=== PATIENT | female | born 1990 | race Caucasian/White ===

== ENCOUNTER → 2016-05-07 | Outpatient (CLI) | payer OTHER ==
[~2016-05-07] MED LIST: ALBU17IN2 PO; COUM1TAB19 PO; MULT1CHW26 PO; PERC5TAB6 PO; PERCOCET PO; SING10TA32 PO; TUMS500C PO; TYLE500T78 PO
[2016-05-12 14:12] LABS: PROTEIN C ANTIGEN 61 % (60-150); PROTEIN S ANTIGEN FREE 71 % (57-157); PROTEIN S ANTIGEN TOTAL 113 % (60-150)
== END ==
LOC: M LRY 14:11
PROVIDERS: ATTEND Internal Medicine Medical Oncology
DX: G08 Intracranial and intraspinal phlebitis and thrombophlebitis (principal)

== ENCOUNTER 2016-05-28 16:51 | Emergency (ER) | payer OTHER ==
[~2016-05-28] VITALS: Ht 167.6 cm; Wt 107.5 kg
[2016-05-28] MEDS ORDERED: KETOROLAC 30 MG/ML VIAL (J1885) IV ONE (18:45)
[2016-05-28] MEDS ORDERED: NS 1,000 ML IV ONE (18:45)
[2016-05-28 19:35] LABS: BASO % 0.4 % (0.0-1.0); EOS # 0.5 K/mm3 (0.0-0.50); EOS % 4.1 % (0.0-3.0); LARGE UNSTAINED CELL # 0.3 K/mm3 (0.0-0.4); LYMPH # 3.6 K/mm3 (1.5-6.5); LYMPH % 31.9 % (24.0-44.0); MEAN CORPUSCULAR HEMOGLOBIN 25.2 pg (27.0-33.0); MEAN CORPUSCULAR HGB CONC 31.6 g/dl (32.0-36.5); MEAN CORPUSCULAR VOLUME 79.8 fl (80.0-96.0); MONO # 0.4 K/mm3 (0.0-0.8); MONO % 3.8 % (0.0-5.0); NEUTROPHILS # 6.4 K/mm3 (1.8-7.7); NEUTROPHILS % 56.7 % (36.0-66.0); PLATELET COUNT, AUTOMATED 450 k/mm3 (150-450); RED CELL DISTRIBUTION WIDTH 15.4 % (11.5-14.5); WHITE BLOOD COUNT 11.2 K/mm3 (4.0-10.0)
[2016-05-28 19:38] LABS: INR 0.9
--- NOTE | 2016-05-28 20:40 | REPUSA ---
CLINICAL HISTORY: Vaginal bleeding. TECHNIQUE: Realtime sonographic images were obtained in multiple projections. COMMENTS: Patient is 2, para 2. LMP: 05/26/2016. The uterus is anteverted measuring 8.9 x 4.4 x 5.8 cm. Small nabothian cyst is seen. There is no evidence of free fluid within the pelvic cul-de-sac. Limited view of the ovaries due to bowel. The right ovary measures 2.3 x 1.8 x 3.6 cm; RI: Venous flow. The left ovary measures 2.4 x 1.4 x 2 .4 cm; RI: 0.56. Both ovaries are free of solid or cystic mass. There is no evidence for abnormal vascularity. IMPRESSION: Slightly heterogeneous uterus. No torsion. Thank you for your kind referral of this patient. We appreciate the opportunity to participate in th is patient's care.
[2016-05-28 21:50] VITALS: BP 130/78
== END 2016-05-28 21:58 | disposition home or self-care (01) ==
LOC: M ED 17:57
DX: N92.0 Excessive and frequent menstruation with regular cycle (principal); F17.210 Nicotine dependence, cigarettes, uncomplicated; Z79.899 Other long term (current) drug therapy
CPT/HCPCS: 36415; 76830; 76856; 81001; 81025; 85025; 85610; 85730; 87210; 87491; 87591; 93976; 96374; 99284; J1885

== ENCOUNTER → 2016-07-16 | Outpatient (CLI) | payer OTHER | LOC: M SMT 13:54 | PROVIDERS: ATTEND Obstetrics & Gynecology | DX: N91.2 Amenorrhea, unspecified (principal) ==

== ENCOUNTER 2016-08-05 12:27 | Observation (INO) | payer OTHER ==
[~2016-08-05] VITALS: Ht 167.6 cm; Wt 112.3 kg
[~2016-08-05 12:27] MED LIST changes: +ALBU17IN2 INH; -ALBU17IN2 PO
[2016-08-05] MEDS ORDERED: FOLI400T PO (12:37)
[2016-08-05] MEDS ORDERED: ENOX40IN3 SQ (12:37)
[2016-08-05] MEDS ORDERED: PREN1TAB11 PO (12:37)
[2016-08-05] MEDS ORDERED: METOCLOPRAMIDE INJ 10MG/2ML VIAL (J2765) IV ONE (13:15)
[2016-08-05 13:37] LABS: CONTROL LINE HCG INT CTR LINE PRESENT
--- NOTE | 2016-08-05 13:37 | REP ---
Clinical: Cerebrovascular accident . Comparison: 01/29/2016 . Findings: The ventricles, sulci, and cisterns are normal in position and appearance. Cazares-white differentiation is maintained. No acute intracranial hemorrhage, mass/mass effect, pathology or trauma/injury. No evidence for acute infarction. No extra-axial fluid collection. Calvarium is intact. Paranasal sinuses and mastoid air cells are clear. Impression: Normal noncontrast head CT. No evidence for acute intracranial pathology or trauma/injury. Signed by Kwan Sutherland MD 08/05/2016 01:28 P
[2016-08-05 13:40] LABS: INR 1.02
[2016-08-05 13:42] LABS: BASO % 0.5 % (0.0-1.0); EOS # 0.2 K/mm3 (0.0-0.50); EOS % 2.5 % (0.0-3.0); LARGE UNSTAINED CELL # 0.2 K/mm3 (0.0-0.4); LARGE UNSTAINED CELL % 1.7 % (0.0-4.0); LYMPH % 31.2 % (24.0-44.0); MEAN CORPUSCULAR HEMOGLOBIN 26.2 pg (27.0-33.0); MEAN CORPUSCULAR HGB CONC 32.1 g/dl (32.0-36.5); MEAN CORPUSCULAR VOLUME 81.7 fl (80.0-96.0); MONO # 0.3 K/mm3 (0.0-0.8); MONO % 3.8 % (0.0-5.0); NEUTROPHILS # 5.4 K/mm3 (1.8-7.7); NEUTROPHILS % 60.3 % (36.0-66.0); PLATELET COUNT, AUTOMATED 441 k/mm3 (150-450); RED CELL DISTRIBUTION WIDTH 15.5 % (11.5-14.5); WHITE BLOOD COUNT 8.9 K/mm3 (4.0-10.0)
[2016-08-05 13:47] LABS: ANION GAP 9 MEQ/L (8-16); BLOOD UREA NITROGEN 15 MG/DL (7-18); CALCIUM LEVEL 8.4 MG/DL (8.5-10.1); CARBON DIOXIDE LEVEL 23 MEQ/L (21-32); CHLORIDE LEVEL 106 MEQ/L (98-107); CREATININE FOR GFR 0.79 MG/DL (0.55-1.02); GLOMERULAR FILTRATION RATE > 60.0 (>60); GLUCOSE, FASTING 137 MG/DL (70-105); POTASSIUM SERUM 3.6 MEQ/L (3.5-5.1); SODIUM LEVEL 138 MEQ/L (136-145)
--- NOTE | 2016-08-05 13:59 | REP ---
Portable chest: Single view. History: CVA. Comparison study: No comparison chest x-ray Findings: The lungs are well inflated and clear. The pleural angles are sharp. EKG monitoring electrodes overlie the chest. Heart size is normal. Pulmonary vasculature is not increased. No significant bony abnormality is seen. Impression: No active disease. Signed by Jose Varma MD 08/05/2016 01:50 P
--- NOTE | 2016-08-05 14:54 | HPEPDOC ---
Medical History and Physical Date of Admission 08/05/16 History and Physical ATTENDING: Dr. Brooke PCP: Dr Melva Lyn CC: left side weakness HPI: 25yoF with a past medical history significant for preeclampsia, sinus thrombosis s/p thrombectomy 04/07, clotting disorder followed by Dr Chester, positive test with LMP 06/21/16 who reports RIZO for past 2 days, throbbing, mild nausea. Last evening began to notice left sided weakness, which was different from her baseline since her previous CVA 04/07. Some numbness and tingling left side come/go. Slight dizziness. No vision change, vertigo, dysarthria, dysphagia. Denies any fevers, chills, weakness, fatigue, RIZO, CP, SOB , cough, palpitations, abdominal pain, N/V/D or changes in bowel or bladder habits. Upon presentation to the hospital the patient was found to have left sided weakness, thus the hospitalist team was consulted. 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 Treated at [facility]. Coumadin anticoagulation discontinued as per Dr Chester 4 mo ago. H/O clotting disorder followed by Dr Chester. Coumadin d/c 4 mo ago. States started Lovenox 4 days ago. H/O preeclampsia 04/07. Following with [facility]. Appt 07/16/16. Migraine RIZO Asthma PSHX: Catheterization 04/07 Cholecystectomy 09/05 SOCHX: Resides in: [place] Marital Status: Kids: 2 Employment: homemaker Tobacco use: quit last thu ETOH: denies Illicit Drugs: Denies Recent travel: denies Advanced directives: none FAMHX: Pt is adopted. Siblings: 3 brothers, 2 sisters Alive, well Children: Alive, s on with h/o tricuspid atresia Unexpected deaths due to medical reasons: None. ROS: As noted in HPI, otherwise 11pt ROS of systems reviewed and remarkable only for LMP 06/21/16. PE: GEN: 25yoF, appears stated age. Well-nourished, well developed. No acute distress. Alert and oriented x 3. Pleasant, interactive. HEENT: Normocephalic, atraumatic. Pupils are equal, round, and reactive to light. Extraocular movements are intact. No nystagmus appreciated. Sclera are nonicteric. Conjunctiva without injection. Nose midline. Nasal turbinates without bogginess. EACs both patent BL. TMs both visualized and navarrete with good cone of light, no bulging or erythema. No facial asymmetry. Moist mucous membranes. Dentition fair. Pharynx pink and moist, no cobblestoning. Neck supple , trachea midline. No lymphadenopathy or thyromegaly appreciated. CHEST: Regular rate and rhythm, +S1, +S2 LUNGS: Clear to auscultation bilaterally. No wheezes, rales, or rhonchi. Breathing appears symmetric and easy. Patient is speaking in full sentences. No accessory muscle use. ABD: Round, soft, non-tender, non-distended. +Bowel sounds throughout. No rebound or guarding. No costovertebral angle tenderness. EXT: Pulses 2+ bilaterally dorsalis pedis and radial. No lower extremity edema appreciated. SKIN: [place], dry, warm. Capillary refill <2sec. No rashes. NEURO: Alert and oriented x 3. Cranial nerves III-XII are intact. Strength Left side 4+/5. CT: head Normal noncontrast head CT. No evidence for acute intracranial pathology or trauma/injury. EKG: NSR 82bpm CXR No active disease. HCG 9412 OB U/S Gestational sac with yolk sac but no identifiable pole. Differential diagnosis includes early intrauterine , spontaneous , and less likely ectopic . Correlation with serial HCG levels and repeat ultrasound as necessary. A&P: 25yoF with a past medical history significant for preeclampsia, sinus thrombosis s/p thrombectomy 04/07, clotting disorder followed by Dr Chester, positive test with LMP 06/21/16 who reports RIZO for past 2 days, throbbing, mild nausea. Last evening began to notice left sided weakness, which was different from her baseline since her previous CVA 04/07. Some numbness and tingling left side come/go. Slight dizziness. No vision change, vertigo, dysarthria, dysphagia. The patient will be admitted to PCU for observation to Dr. Brooke's service. Pt is discussed with Dr Tijerina. 1. Left sided weakness/RIZO. PCU/TM. Ct in ED no acute changes. Clt Neurology. Dr Park who is villalobos. MRI/MRA unable at this time per Radiology, discussed with Neurology plan to repeat CT in AM. 2. H/O CVA. Records requested from previous admission to [place]. 3. H/O Seizure. 4. H/O clotting disorder. Cont current Lovenox dose, records requested from Dr Peralta. 5. . LMP 06/21/16. Hcg 9412. OB U/S as above. Spoke with Dr Nunez who will see pt, repeat HCG in 48hrs. 6. H/O preeclampsia. 7. Asthma. Albuterol as needed 8. migraine RIZO DVT prophylaxis. The patient is a Full code. Vital Signs Vital Signs Date Time Temp Pulse Resp B/P (MAP) Pulse Ox O2 Delivery O2 Flow Rate FiO2 08/05/16 14:18 107/58 (74) 08/05/16 14:12 84 97 08/05/16 12:53 18 08/05/16 12:28 98.7 Room Air Laboratory Data Labs 24H Laboratory Tests 2 08/05/16 12:52: White Blood Count 8.9, Red Blood Count 4.56, Hemoglobin 11.9L, Hematocrit 37.2, Mean Corpuscular Volume 81.7, Mean Corpuscular Hemoglobin 26.2L, Mean Corpuscular Hemoglobin Concent 32.1, Red Cell Distribution Width 15.5H, Platelet Count 441, Neutrophils (%) (Auto) 60.3, Lymphocytes (%) (Auto) 31.2, Monocytes (%) (Auto) 3.8, Eosinophils (%) (Auto) 2.5, Basophils (%) (Auto) 0.5, Neutrophils # (Auto) 5.4, Lymphocytes # (Auto) 3.0, Monocytes # (Auto) 0.3, Eosinophils # (Auto) 0.2, Basophils # (Auto) 0.0, Large Unclassified Cells % 1.7 , Large Unclassified Cells # 0.2, Prothrombin Time 13.5, Prothromb Time International Ratio 1.02, Activated Partial Thromboplast Time 25.2L, Anion Gap 9 , Glomerular Filtration Rate > 60.0, Blood Urea Nitrogen 15, Creatinine 0.79, Sodium Level 138, Potassium Level 3.6, Chloride Level 106, Carbon Dioxide Level 23, Calcium Level 8.4L, Total Creatine Kinase 159, Creatine Kinase MB 1.0, Creatine Kinase MB Relative Index 0.62, Troponin I < 0.02, Human Chorionic Gonadotropin, Qual POSITIVEA, Human Chorionic Gonadotropin, Quant 9412 CBC/BMP Laboratory Tests 08/05/16 12:52 Red Blood Count 4.56, Mean Corpuscular Volume 81.7, Mean Corpuscular Hemoglobin 26.2 L, Mean Corpuscular Hemoglobin Concent 32.1, Red Cell Distribution Width 15.5 H, Neutrophils (%) (Auto) 60.3, Lymphocytes (%) (Auto) 31.2, Monocytes (%) (Auto) 3.8, Eosinophils (%) (Auto) 2.5, Basophils (%) (Auto) 0.5, Neutrophils # (Auto) 5.4, Lymphocytes # (Auto) 3.0, Monocytes # (Auto) 0.3, Eosinophils # ( Auto) 0.2, Basophils # (Auto) 0.0, Calcium Level 8.4 L, Total Creatine Kinase 159 Home Medications Scheduled ( Vitamin 27-0.8 mg) 1 Tab Tab, 1 TAB PO QHS Enoxaparin Sodium (Enoxaparin Sodium) 40 Mg/0.4 Ml Inj, 40 MG SQ QHS Folic Acid (Folic Acid) 400 Mcg Tab, 400 MCG PO QHS Scheduled PRN Albuterol Sulfate (Proventil Hfa) 167 Puff/6.7 Gm Aers, 2 PUFFS INH QID PRN for SOB/WHEEZING Allergies Coded Allergies: No Known Allergies (Unverified , 04/09/15) Lela Rios August 05, 2016 14:54 EBONY TIJERINA MD August 06, 2016 12:26
[2016-08-05] MEDS ORDERED: MORPHINE 2 MG/ML 1ML SYRINGE IV PRN (15:00)
--- NOTE | 2016-08-05 15:05 | REP ---
Clinical: Dating and viability. Technique: First trimester transabdominal and transvaginal ultrasound examination Findings: Anteverted uterus measures 10.9 x 5.9 x 6.1 cm. A gestational sac is identified with yolk sac, but no pole. Mean sac diameter of 9.4 mm corresponds to 5 weeks 5 days gestational age. Right ovary not visualized. Left ovary normal and measuring 3.4 x 2.3 x 2.1 cm. No pelvic free fluid or adnexal mass lesion. Impression: Gestational sac with yolk sac but no identifiable pole. Differential diagnosis includes early intrauterine , spontaneous , and less likely ectopic . Correlation with serial HCG levels and repeat ultrasound as necessary. Signed by Kwan Sutherland MD 08/05/2016 02:57 P
[2016-08-05] MEDS ORDERED: ENOXAPARIN 40 MG/0.4 ML SYRINGE (J1650) SQ SCH (21:00)
[2016-08-05 23:12] VITALS: BP 118/58
[2016-08-06] MEDS: FIORICET TAB PO PRN ×3 (00:47→15:40)
[2016-08-06 03:45] VITALS: BP 115/55
[2016-08-06 07:30] VITALS: BP 128/67
[2016-08-06 08:12] LABS: MEAN CORPUSCULAR HEMOGLOBIN 26.8 pg (27.0-33.0); MEAN CORPUSCULAR HGB CONC 32.5 g/dl (32.0-36.5); MEAN CORPUSCULAR VOLUME 82.5 fl (80.0-96.0); RED CELL DISTRIBUTION WIDTH 15.9 % (11.5-14.5); WHITE BLOOD COUNT 8.8 K/mm3 (4.0-10.0)
[2016-08-06 08:43] LABS: ANION GAP 8 MEQ/L (8-16); BLOOD UREA NITROGEN 15 MG/DL (7-18); CALCIUM LEVEL 8.3 MG/DL (8.5-10.1); CARBON DIOXIDE LEVEL 24 MEQ/L (21-32); CHLORIDE LEVEL 107 MEQ/L (98-107); CREATININE FOR GFR 0.75 MG/DL (0.55-1.02); GLOMERULAR FILTRATION RATE > 60.0 (>60); GLUCOSE, FASTING 98 MG/DL (70-105); POTASSIUM SERUM 4.1 MEQ/L (3.5-5.1); SODIUM LEVEL 139 MEQ/L (136-145)
--- NOTE | 2016-08-06 10:12 | ECGEPIP ---
Stationary ECG Study [facility] - ED Test Date: 2016-08-05 Pat Name: FIDE KIDD Department: Room: - Gender: F Director Compliance: han : 1990 Requested By: Kathe Ford Order Number: [id number] Reading MD: Rylie Calvert Measurements Intervals [place] Rate: 82 P: 0 IL: 156 QRS: 40 QRSD: 87 T: 10 QT: 360 QTc: 422 Interpretive Statements SINUS RHYTHM NSTTW ABNORMALITY SIMILAR 09/16/15 Electronically Signed On 08-06-2016 10:12:28 EDT by Rylie Calvert
--- NOTE | 2016-08-06 10:54 | IPNPDOC ---
Subjective Date Seen The patient was seen on 08/06/16. Subjective Chief Complaint/HPI The patient is a 25-year-old female admitted with a reason for visit of Weakness Lt Side Of Body. Events since last encounter Patient was seen this morning at bedside. She reports she still has a headache, mainly in the occipital region. It did improve a little after Fioricet. She denies any blurry/double/or loss of vision. No dizziness. She reports feeling weak, more on the left side, but states she doesn't think she is as weak as she was yesterday. No chest pain/pressure or SOB. No nausea, vomiting, abd pain or diarrhea. No fevers or chills. Objective Physical Examination General Exam: Positive: Alert, Cooperative, No Acute Distress Eye Exam: Positive: Conjunctiva & lids normal, EOMI, Negative: Sclera icteric ENT Exam: Positive: Atraumatic, Mucous membr. moist/pink, Pharynx Normal Neck Exam: Positive: Supple, Negative: thyromegaly Chest Exam: Positive: Clear to auscultation, Normal air movement Heart Exam: Positive: Rate Normal, Regular Rhythm, Normal S1, Normal S2, Negative: Murmurs Abdomen Exam: Positive: Normal bowel sounds, Soft, Negative: Tenderness Extremity Exam: Positive: Normal pulses, Negative: Cyanosis, Edema, Tenderness Skin Exam: Positive: Nl turgor and temperature, Negative: Rash Neuro Exam: Positive: Normal Speech, Strength at 5/5 X4 ext, Sensation Intact, Cranial Nerves 3-12 NL Psych Exam: Positive: Mental status NL, Oriented x 3 Assessment /Plan Problems (1) Weakness of left side of body Status: Acute Problem Specific Plan: Consult Specialist, Monitor Clinically, Repeat Tests Problem Text: * Head CT negative * Patient will have MRI/MRV. She is aware of the risk to the fetus (including but not limited to demise, defects, hearing defects, malignant mutations, etc) and would like to have MRI/MRV done given her history of cerebral vein thrombosis * Neurology following (2) Headache Status: Acute Problem Specific Plan: Monitor Clinically, Repeat Tests Problem Text: * May be secondary to migraine RIZO or cerebral insult * Continue Fioricet * Will await further imaging (3) Status: Acute Problem Specific Plan: Consult Specialist, Monitor Clinically, Repeat Labs Problem Text: * She has history of cerebral vein thrombosis 2 days * Also has history of pre-eclampsia * OB has been consulted (4) History of cerebral venous sinus thrombosis Status: Chronic Problem Specific Plan: Monitor Clinically Problem Text: * History of cerebral vein thrombosis 2 days in Mar 2015 status post thrombectomy, complicated by seizure at [place] * Will await MRI/MRV to rule out cerebral insult (5) History of MTHFR mutation Status: Chronic Problem Specific Plan: Monitor Clinically Problem Text: * Follows with Dr. Peralta as outpatient * Spoke with hem/onc as well as OB who agree with increasing her dose of anticoagulation (6) History of asthma Status: Chronic Problem Specific Plan: Monitor Clinically Problem Text: * Breathing stable and at baseline * Duoneb as needed (7) History of pre-eclampsia Status: Chronic Problem Specific Plan: Monitor Clinically Plan/VTE VTE Prophylaxis Ordered?: Yes (lovenox) VS, I&O, 24H, Fishbone Vital Signs/I&O Vital Signs Date Time Temp Pulse Resp B/P (MAP) Pulse Ox O2 Delivery O2 Flow Rate FiO2 08/06/16 09:18 20 08/06/16 03:45 98.1 87 115/55 (75) 97 Room Air I&O- Last 24 Hours up to 6 AM 08/06/16 05:59 Intake Total 0 ml Output Total 200 ml Balance -200 ml Laboratory Data CBC/BMP Laboratory Tests 08/05/16 12:52 Red Blood Count 4.56, Mean Corpuscular Volume 81.7, Mean Corpuscular Hemoglobin 26.2 L, Mean Corpuscular Hemoglobin Concent 32.1, Red Cell Distribution Width 15.5 H, Neutrophils (%) (Auto) 60.3, Lymphocytes (%) (Auto) 31.2, Monocytes (%) (Auto) 3.8, Eosinophils (%) (Auto) 2.5, Basophils (%) (Auto) 0.5, Neutrophils # (Auto) 5.4, Lymphocytes # (Auto) 3.0, Monocytes # (Auto) 0.3, Eosinophils # ( Auto) 0.2, Basophils # (Auto) 0.0, Calcium Level 8.4 L, Total Creatine Kinase 159 08/06/16 08:03 Red Blood Count 4.22, Mean Corpuscular Volume 82.5, Mean Corpuscular Hemoglobin 26.8 L, Mean Corpuscular Hemoglobin Concent 32.5, Red Cell Distribution Width 15.9 H, Calcium Level 8.3 L GME ATTESTATION GME ATTESTATION My preceptor for this patient encounter was physically present in the building during the encounter and was fully available. As needed, all aspects of the patient interview, examination, medical decision making process, and medical care plan development were reviewed and approved by the preceptor. Preceptor is aware and concurs with the plan as stated in the body of this note and will attest to such by his/her cosignature. MO AREVALO DO August 06, 2016 10:54
[2016-08-06 12:00] VITALS: BP 127/70
--- NOTE | 2016-08-06 15:08 | REP ---
MRI BRAIN WITHOUT CONTRAST: 08/06/2016. Clinical history: Positive test with ultrasound yesterday showing an empty gestational sac at 7-tqiu-1-day size that could be normal early gestation, blighted ovum or missed spontaneous . This exam was scheduled only after clearing with obstetric healthcare economics consultant which was arranged by her attending physician and related to me. Her clinical symptoms raise question of possible CVA. She has had a prior CVA and currently has weakness, headache and history of cerebral vein thrombosis. Comparison study: CT brain 08/05/2016, 01/29/2016, 08/12/2015. MRA brain today. Technique: Axial T1, T2, FLAIR, diffusion weighted images and ADC mapping sequences with gradient echo images along with sagittal T1 sequence. Findings: Ventricles are midline, symmetric and without dilatation or displacement. Third and fourth ventricles were unremarkable. The basal ganglia show a few dilated perivascular spaces. The navarrete-white junction differentiation is well maintained. There is no periventricular, deep central or subcortical white matter hyperintense T2 and FLAIR focus in either hemisphere. No extra-axial fluid collection. Cortical stripe preserved without atrophy, hemorrhage, mass, acute infarct or edema. Brainstem grossly intact. Cerebellum grossly unremarkable. There is no signal abnormality within. Basal cisterns are intact. The seventh/eighth cranial nerve complexes are symmetric and show normal signal. Mastoids intact. Sinuses show minor mucosal thickening of the maxillary sinuses and some of the ethmoid air cells. The frontal and sphenoid sinuses appear grossly clear. Diffusion weighted images and the ADC mapping sequences with no evidence of acute ischemia. No restricted water diffusion. Corpus callosum, optic chiasm and pituitary were grossly intact. No cerebellar tonsillar ectopia. The craniocervical junction shows ample subarachnoid space. Impression: 1. No intracranial hemorrhage, intra or extra-axial fluid collections or mass. 2. White matter tracts unremarkable and there is no small vessel ischemic change, acute infarct, hemorrhage or mass. 3. Seventh/eighth cranial nerve complexes and mastoids intact. Sinuses show only a few scattered ethmoid air cells with mucosal thickening. 4. Posterior fossa without acute finding. Skull base structures also unremarkable. Signed by Xavier Felder MD 08/06/2016 05:24 P
--- NOTE | 2016-08-06 15:41 | REP ---
MRV BRAIN WITHOUT CONTRAST: 08/06/2016. Clinical history: Weakness, headache, history of cerebral vein thrombosis. Comparison: MRI brain this date, CT brain 08/05/2016. Technique: 2D [id number] gradient echo volume acquisition with volume reconstructions for MRV rotated about the longitudinal and horizontal axis of the skull. Findings: Sagittal sinus and the cerebral veins in the parasagittal locations were grossly intact. It should be noted that the sagittal gradient echo reconstructed images are angled off axis of the long axis of the brain. Accordingly, the straight sinus appears to extend into the transverse sinus on one side and the sagittal sinus drains into the opposite transverse sinus. No other findings. Impression: 1. Anatomic variation without compelling MR evidence for cerebral venous thrombosis in the venous sinuses. 2. No venous infarction or other abnormalities in the MRI brain done this same date. Signed by Xavier Felder MD 08/06/2016 05:25 P
[2016-08-06 16:00] VITALS: BP 126/64
[2016-08-06] MEDS: ENOXAPARIN 120 MG/0.8 ML SYR (J1650) SC SCH (17:57)
[2016-08-06] MEDS: METOCLOPRAMIDE INJ 10MG/2ML VIAL (J2765) IV PRN (20:05)
[2016-08-06] MEDS: ALBUTEROL 90 MCG/ACT 8GM HFA INHALER INH PRN (20:28)
[2016-08-06] MEDS: ACETAMINOPHEN TAB 650MG DOSE (2X325MG) PO PRN (20:32)
[2016-08-06 20:36] VITALS: BP 108/69
[2016-08-06 21:30] VITALS: BP 134/69
--- NOTE | 2016-08-06 23:11 | CR ---
DATE OF CONSULTATION: 08/06/2016 REASON FOR CONSULTATION: Evaluation of early . HISTORY OF PRESENT ILLNESS: Mrs. Shultz is a 25-year-old 4, para 2, with a last menstrual period of 06/21/2016, who initially was admitted under the hospitalist service for headache with neurological features. She is currently at 5w6d by her LMP and had ultrasound performed yesterday that consistent with dates. No pole was identified but intrauterine was identified with a yolk sac. She currently denies any vaginal bleeding or abdominal discomfort. This is a planned . She reports a negative test in the middle of last month with her first positive test on 2016. Her history is significant for preeclampsia/eclampsia with her last . She was initially induced in March 2015 for preeclampsia, was discharged home in stable condition, and on day #6 experienced eclampsia with seizure and cerebrovascular accident. She subsequently underwent a thrombectomy and was placed on anticoagulation currently being managed by Dr. Peralta. That was also remarkable for her son diagnosed postnatally with tricuspid atresia. PAST MEDICAL HISTORY: Is also significant for: 1. Asthma. 2. Depression and anxiety. 3. She reports a history of headaches with no formal diagnosis of migraine headaches. PAST SURGICAL HISTORY: History of a thrombectomy, laparoscopic cholecystectomy. PAST OBSTETRICAL HISTORY: She is a 4, para 2. She had one term vaginal delivery, followed by a 36 week vaginal delivery where she was induced secondary to severe preeclampsia. She is proven to 7 pounds 14 ounces. MEDICATIONS: Includes: - vitamins - recently discontinued Singulair - Lovenox FAMILY HISTORY: She denies any history of clotting disorders and reports history of hypertension with her mother and aunt and her grandfather having heart disease and she believes that he was on a blood thinner but for unknown reason. SOCIAL HISTORY: She reports that she recently quit smoking. Denies any alcohol , tobacco, or drug use since finding out she was . PHYSICAL EXAMINATION: Her vital signs are stable, she is afebrile. Her general appearance is well-appearing, communicating well with family members. Her abdomen is soft, nontender. Neurologically, she appears to be grossly intact. ASSESSMENT: 1. Mrs. Shultz is a 25-year-old 4, para 2 at 6 weeks 4 days by her last menstrual period. 2. History of preeclampsia and eclampsia with a cerebrovascular accident, she is status post thrombectomy. Currently on anticoagulation. 3. Headache of unknown etiology. PLAN: 1. Currently with a defined intrauterine by ultrasound with yolk sac and gestational sac measuring appropriately within 5 days of her last menstrual period. I recommend repeat ultrasound in 1 week for viability. I am not concerned for an ectopic at this time due to evidence of intrauterine . 2. Anticoagulation due to her history of thrombolic event. She reports that she tests positive for thrombophilia, although unable to find documentation of this. I would recommend anticoagulation with dose of Lovenox 40 mg twice a day. 3. Will consider aspirin therapy at 14 weeks secondary to her history of severe preeclampsia/eclampsia. 4. I have instructed her on vitamin use and encouraged maintaining smoking cessation. 5. Recommend maternal medicine consultation, level 2 ultrasound with a echo at 22 weeks gestation for history of her son with tricuspid atresia. 6. If patient is discharged, she should be seen in our office within the week for further evaluation and management of this . Our practice will continue to follow this patient while she is hospitalized. ADDIE
[2016-08-07] MEDS: ALBUTEROL 90 MCG/ACT 8GM HFA INHALER INH PRN (05:55)
[2016-08-07 05:59] LABS: MEAN CORPUSCULAR HEMOGLOBIN 26.7 pg (27.0-33.0); MEAN CORPUSCULAR HGB CONC 32.4 g/dl (32.0-36.5); MEAN CORPUSCULAR VOLUME 82.6 fl (80.0-96.0); RED CELL DISTRIBUTION WIDTH 15.7 % (11.5-14.5); WHITE BLOOD COUNT 9.2 K/mm3 (4.0-10.0)
[2016-08-07] MEDS: ENOXAPARIN 120 MG/0.8 ML SYR (J1650) SC SCH (05:59)
[2016-08-07 06:00] VITALS: BP 133/68
[2016-08-07 06:29] LABS: ANION GAP 8 MEQ/L (8-16); BLOOD UREA NITROGEN 17 MG/DL (7-18); CALCIUM LEVEL 8.1 MG/DL (8.5-10.1); CARBON DIOXIDE LEVEL 24 MEQ/L (21-32); CHLORIDE LEVEL 107 MEQ/L (98-107); CREATININE FOR GFR 0.75 MG/DL (0.55-1.02); GLOMERULAR FILTRATION RATE > 60.0 (>60); GLUCOSE, FASTING 98 MG/DL (70-105); HCG, SERUM QUANTITATIVE 12672 MIU/ML; MAGNESIUM LEVEL 1.9 MG/DL (1.8-2.4); POTASSIUM SERUM 3.8 MEQ/L (3.5-5.1); SODIUM LEVEL 139 MEQ/L (136-145)
--- NOTE | 2016-08-07 07:21 | CR ---
DATE OF CONSULTATION: 08/04/2016 REFERRING PHYSICIAN: Dr. Priya Tijerina REASON FOR CONSULTATION: Severe headache and left-sided weakness. 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 She was admitted at [facility] in [place]. She had just delivered her son who was being evaluated in [place] for tricuspid valve atresia when she developed severe headache along with left-sided weakness and had a generalized tonic-clonic seizure. She was admitted at [facility] and was found to have cerebral venous sinus thrombosis, which was partially removed after thrombectomy. 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 She was on Coumadin for 8 months. She is currently on low-dose Lovenox. She has history of migraines periodically. She is again . She thinks that she may be 2 or 3 weeks . She developed severe 8/10 left occipital and parietal headache. She has migraines once or twice a month. She felt increased weakness on left side of her body and mild trouble walking and talking. She denies any neck or back pain. She is currently on low-dose Lovenox. She denies any falls, loss of consciousness or head injuries. PAST MEDICAL HISTORY: Cerebral venous sinus thrombosis status post partial thrombectomy in March 2015, seizure at the time of venous sinus thrombosis, a genetic clotting disorder but patient is not sure its exact type and etiology. History of preeclampsia, migraines, asthma, cholecystectomy. SOCIAL HISTORY: She denies smoking, alcohol or illicit drugs. She does not use control pills. She is and has two children. FAMILY HISTORY: She is adopted. REVIEW OF SYSTEMS: All systems were reviewed and were found to be noncontributory except as mentioned in history present illness. PHYSICAL EXAMINATION: Blood pressure 11/66, 96% oxygen saturation on room air, pulse 98. Heart: Regular rate and rhythm. Lungs: Clear to auscultation. Abdomen: Soft, nontender, nondistended. No pedal edema. No gross musculoskeletal abnormalities. Ear, nose, throat examination is within normal limits. The patient is awake, alert, oriented to place, person and time. Normal speech, comprehension and repetition. Extraocular muscles are intact. No facial weakness. Tongue and uvula are midline. 5/5 strength on the right side. Left-sided strength is 4/5 with intermittent activation. Deep tendon reflexes are 2+ throughout. Normal sensation to light touch, pinprick, vibration. Gait is normal. No signs of meningeal irritation. DIAGNOSTIC STUDIES: CT scan of her head was within normal limits. ASSESSMENT: 1. Migraine, without aura, not intractable, without status migrainosus. 2. History of cerebral venous sinus thrombosis with a clotting disorder of unknown type at this time. 3. History of seizure at the time of cerebral venous sinus thrombosis for which patient had partial thrombectomy followed by anticoagulation for 8 months. 4. There is concern for recurrent venous sinus thrombosis. PLAN: 1. MRI and MRV of brain after it is cleared by her golf teacher and radiologist. My index of suspicion is low for recurrence. 2. Continue Lovenox 40 mg subcutaneous once a day. 3. Fioricet one tablet by mouth every 4 hours as needed for headache. 4. Close followup with hematology and her golf teacher.
[2016-08-07] MEDS: PRENATAL VITAMIN TAB PO SCH (08:48)
--- NOTE | 2016-08-07 11:47 | IPNPDOC ---
Subjective Date Seen The patient was seen on 08/07/16. Subjective Chief Complaint/HPI The patient is a 25-year-old female admitted with a reason for visit of Weakness Lt Side Of Body. Events since last encounter Patient was seen this morning at bedside. She reports that her headache has improved. No lightheadedness, dizziness, change in vision. Weakness has resolved. She denies any chest pain/pressure, shortness of breath, vomiting, diarrhea, dysuria, hematuria, change in urinary frequency. Reports some abd cramping and nausea from . No fevers, chills. Objective Physical Examination General Exam: Positive: Alert, Cooperative, No Acute Distress Eye Exam: Positive: Conjunctiva & lids normal, EOMI, Negative: Sclera icteric ENT Exam: Positive: Atraumatic, Mucous membr. moist/pink, Pharynx Normal Neck Exam: Positive: Supple, Negative: thyromegaly Chest Exam: Positive: Clear to auscultation, Normal air movement Heart Exam: Positive: Rate Normal, Regular Rhythm, Normal S1, Normal S2, Negative: Murmurs Abdomen Exam: Positive: Normal bowel sounds, Soft, Negative: Tenderness Extremity Exam: Positive: Normal pulses, Negative: Cyanosis, Edema, Tenderness Skin Exam: Positive: Nl turgor and temperature, Negative: Rash Neuro Exam: Positive: Normal Speech, Strength at 5/5 X4 ext, Sensation Intact, Cranial Nerves 3-12 NL Psych Exam: Positive: Mental status NL, Oriented x 3 Assessment /Plan Problems (1) Fever Status: Acute Problem Specific Plan: Monitor Clinically Problem Text: * CXR within normal * Will obtain UA * Monitor for recurrence * Tylenol as needed * No meningeal signs given headache * (2) Weakness of left side of body Status: Acute Problem Specific Plan: Consult Specialist, Monitor Clinically, Repeat Tests Problem Text: * Head CT negative * MRI/MRV were negative * Neurology was consulted (3) Headache Status: Acute Problem Specific Plan: Monitor Clinically, Repeat Tests Problem Text: * May be secondary to migraine RIZO. She reports that she has been getting headaches after her cerebral vein thrombosis last year * Continue Fioricet, Tylenol prn and ice packs * No neuro deficits (4) Status: Acute Problem Specific Plan: Consult Specialist, Monitor Clinically, Repeat Labs Problem Text: * She has history of cerebral vein thrombosis 2 days * Also has history of pre-eclampsia * OB was consulted, recommend followup after discharge with repeat US * Continue vitamins (5) History of cerebral venous sinus thrombosis Status: Chronic Problem Specific Plan: Monitor Clinically Problem Text: * History of cerebral vein thrombosis 2 days in Mar 2015 status post thrombectomy, complicated by seizure at [place] (6) History of MTHFR mutation Status: Chronic Problem Specific Plan: Monitor Clinically Problem Text: * Follows with Dr. Peralta as outpatient * Spoke with hem/onc as well as OB who agree with increasing her dose of anticoagulation * Will dc on Lovenox 40mg BID (7) History of asthma Status: Chronic Problem Specific Plan: Monitor Clinically Problem Text: * Breathing stable and at baseline * Duoneb as needed (8) History of pre-eclampsia Status: Chronic Problem Specific Plan: Monitor Clinically Problem Text: * Follow closely with OB upon discharge Plan/VTE VTE Prophylaxis Ordered?: Yes (lovenox) VS, I&O, 24H, Fishbone Vital Signs/I&O Vital Signs Date Time Temp Pulse Resp B/P (MAP) Pulse Ox O2 Delivery O2 Flow Rate FiO2 08/07/16 06:00 99.5 74 18 133/68 (89) 95 Room Air I&O- Last 24 Hours up to 6 AM 08/07/16 06:00 Intake Total 660 ml Output Total 1700 ml Balance -1040 ml Laboratory Data CBC/BMP Laboratory Tests 08/07/16 05:40 Red Blood Count 4.07, Mean Corpuscular Volume 82.6, Mean Corpuscular Hemoglobin 26.7 L, Mean Corpuscular Hemoglobin Concent 32.4, Red Cell Distribution Width 15.7 H, Calcium Level 8.1 L GME ATTESTATION GME ATTESTATION My preceptor for this patient encounter was physically present in the building during the encounter and was fully available. As needed, all aspects of the patient interview, examination, medical decision making process, and medical care plan development were reviewed and approved by the preceptor. Preceptor is aware and concurs with the plan as stated in the body of this note and will attest to such by his/her cosignature. MO AREVALO DO August 07, 2016 11:47
[2016-08-07 14:00] VITALS: BP 141/74
[2016-08-07] MEDS: ACETAMINOPHEN TAB 650MG DOSE (2X325MG) PO PRN ×2 (14:36→21:13)
[2016-08-07] MEDS: ENOXAPARIN 40 MG/0.4 ML SYRINGE (J1650) SC SCH (18:28)
[2016-08-07] MEDS: FIORICET TAB PO PRN ×2 (18:29→21:39)
[2016-08-07 20:51] VITALS: BP 129/69
[2016-08-07] MEDS: METOCLOPRAMIDE INJ 10MG/2ML VIAL (J2765) IV PRN (21:13)
[2016-08-08] MEDS: ENOXAPARIN 40 MG/0.4 ML SYRINGE (J1650) SC SCH (05:17)
[2016-08-08] MEDS: ALBUTEROL 90 MCG/ACT 8GM HFA INHALER INH PRN (05:32)
[2016-08-08 05:38] VITALS: BP 126/75
[2016-08-08 06:03] LABS: MEAN CORPUSCULAR HEMOGLOBIN 26.4 pg (27.0-33.0); MEAN CORPUSCULAR HGB CONC 31.1 g/dl (32.0-36.5); MEAN CORPUSCULAR VOLUME 84.8 fl (80.0-96.0); RED CELL DISTRIBUTION WIDTH 15.7 % (11.5-14.5); WHITE BLOOD COUNT 8.6 K/mm3 (4.0-10.0)
[2016-08-08 06:34] LABS: ANION GAP 8 MEQ/L (8-16); BLOOD UREA NITROGEN 15 MG/DL (7-18); CALCIUM LEVEL 7.8 MG/DL (8.5-10.1); CARBON DIOXIDE LEVEL 21 MEQ/L (21-32); CHLORIDE LEVEL 110 MEQ/L (98-107); GLOMERULAR FILTRATION RATE > 60.0 (>60); GLUCOSE, FASTING 88 MG/DL (70-105); MAGNESIUM LEVEL 1.8 MG/DL (1.8-2.4); POTASSIUM SERUM 3.9 MEQ/L (3.5-5.1); SODIUM LEVEL 139 MEQ/L (136-145)
--- NOTE | 2016-08-08 07:17 | ECGEPIP ---
Stationary ECG Study [facility] Test Date: 2016-08-08 Pat Name: FIDE KIDD Department: Room: [place] [address] Gender: F School Bus Aide: : 1990 Requested By: SANJUANA RODRIGUEZ Order Number: [id number] Reading MD: Madeline Suarez Measurements Intervals Edwards Rate: 81 P: -3 WA: 155 QRS: 41 QRSD: 98 T: 16 QT: 387 QTc: 450 Interpretive Statements SINUS RHYTHM WITH SINUS ARRHYTHMIA NSSTTWA SIMILAR TO 08/05/16 Electronically Signed On 08-08-2016 7:17:09 EDT by Madeline Suarez
[2016-08-08] MEDS: PRENATAL VITAMIN TAB PO SCH (09:18)
[2016-08-08] MEDS: ACETAMINOPHEN TAB 650MG DOSE (2X325MG) PO PRN (09:20)
[2016-08-08] MEDS ORDERED: BUTA-198 PO (11:37)
[2016-08-08] MEDS ORDERED: ENOX40IN3 SQ (11:37)
[2016-08-08] MEDS: FIORICET TAB PO PRN (12:15)
--- NOTE | 2016-08-08 20:28 | DSES ---
DATE OF ADMISSION: 08/05/2016 DATE OF DISCHARGE: 08/08/2016 DISCHARGE DIAGNOSES: 1. Headache. 2. Weakness on left side, resolved. 3. History of cerebral vein thrombosis, status post thrombectomy March 2015 4. History of MTHFR gene mutation. 5. History of asthma. 6. History of preeclampsia. 7. Currently , about 5 weeks. DISCHARGE MEDICATIONS: - Fioricet 2 tablets every 6 hours as needed, 12 tablets total. - Proventil inhaler 2 puffs inhaled four times daily as needed - folic acid 400 mcg by mouth daily - vitamin 1 tablet by mouth at night - Lovenox 40 mg subcutaneous twice daily BRIEF HOSPITAL COURSE: The patient originally presented with a headache and weakness of the left side of her body. She had a head CT which was negative. She has history of cerebral vein thrombosis 2 days , status post thrombectomy complicated by seizures in March 2015. Given her history, MRI and MRV was performed. The patient signed a consent for MRI procedure, given her history of being 5 weeks . Risk and benefits were explained to the patient and she wanted to have this testing done to rule out repeat thrombosis. MRI and MRV were found to be negative. Neurology was consulted who evaluated the patient and given negative findings, no further recommendations were provided. She has history of MTHFR gene mutation and is supposed to be anticoagulated with . She presented to the hospital on Lovenox 40 mg daily. After a discussion with her [employer]ER as well as Hematology/Oncology, it was decided that she would be okay with going home on Lovenox 40 mg twice a day which was the recommendation of the [employer]. Her weakness improved shortly after hospitalization. She did have significant headaches, which she reports has been ongoing since her thrombotic event. This was treated with Fioricet, Tylenol and ice packs. She did develop a fever during hospitalization, chest x-ray was normal. Urinalysis did show some blood, but no bacteria or other signs of infection. Urinalysis and urine culture was repeated prior to discharge and is pending. On day of discharge, the patient states that she felt well. Headache was controlled. No weakness. No visual disturbance. No lightheadedness or dizziness. She did have an episode of chest pain, which was reproducible to palpation. It lasted about 20 to 30 minutes and then resolved and did not reoccur. She reported that she has had this type of pain several times at home in the past as well. Prior to discharge, she denied any chest pain/pressure, shortness of breath, nausea, vomiting, diarrhea. She was afebrile. She did have some crampy abdominal pain, but reports that she usually gets this type of pain with . LABORATORY DATA: At discharge, WBC 8.6, hemoglobin 11.0, hematocrit 35.4, platelet count 426, sodium 139, potassium 3.9, chloride 110, carbon dioxide 21, anion gap 8, BUN 15, creatinine 0.7, GFR greater than 60, fasting glucose 88, calcium 7.8, magnesium 1.8, total creatinine kinase 92, CK-MB 1.0, troponin less than 0.02. The patient had HCG done in the hospital on August 05, which was 9412. Repeat HCG 48 hours later was 12,672. IMAGING STUDIES: As stated above, in addition the patient had a chest x-ray which showed no acute disease. Obstetric ultrasound revealed a gestational sac, but no identifiable pole. She is to have repeat ultrasound as outpatient when she follows up with her OB. PHYSICAL EXAMINATION: Vital signs: Temperature 98.9, pulse 85, respiratory rate 16, blood pressure 126/75, pulse oximetry 98% on room air. General: The patient is alert and oriented times three, in no acute distress. HEENT: Normocephalic, atraumatic. Extraocular muscles are intact. Pupils are equally round and reactive to light. No scleral icterus. Moist mucosa. Neck: Supple. No cervical lymphadenopathy. No thyromegaly. Heart: Normal S1-S2, regular rate and rhythm. No murmurs appreciated. Lungs: Clear to auscultation bilaterally. No rales, rhonchi or wheezing. Abdomen: Soft. Obese. Mildly tender to palpation in the lower mid quadrant. No rebound, guarding or rigidity. Bowel sounds are present. Extremities: No cyanosis or edema. Positive pedal pulses bilaterally. Skin: Warm and dry. No rashes noted. Good skin turgor. Neurologic: No focal deficits. Cranial nerves: II through XII are grossly intact. Motor strength in upper and lower extremities are 5/5 bilaterally. Good tone. Sensation intact. CONSULTANTS DURING HOSPITALIZATION: 1. Dr. Yessenia Nick MD, [employer] 2. James Park MD, neurology DISCHARGE INSTRUCTIONS: The patient is discharged in stable condition. She should followup with her [employer]ER on August 13 at 10:30. Ultrasound will be repeated at that time and further care will be provided. She should followup with Hematology/Oncology on August 13 at 1:30 for further management of gene mutation. She is being discharged on Lovenox 40 mg twice daily. This medication can be adjusted as needed per Hem/Onc and [employer]. Followup with her primary care provider, Dr. Lyn on August 21. Urine culture and urinalysis should be followed up on in case patient is in need of further therapy. Activity as tolerated. Low-sodium, low-cholesterol diet. Return to the emergency department with any worsening or recurring symptoms. Time spent on discharge: Greater than 35 minutes. My preceptor for this patient encounter was Dr. Gustabo Brooke. The preceptor was physically present in the building during the encounter and was fully available. As needed, all aspects of the patient interview, examination, medical decision making process, and medical care plan development were reviewed and approved by the preceptor. The preceptor is aware and concurs with the plan as stated in the body of this note and will attest to such by his/her cosignature.
== END 2016-08-08 13:42 | disposition home or self-care (01) ==
LOC: M ED 13:24 → M ED INP 14:49 → M PCU 22:59 → M MSPAV 08-06 21:30
PROVIDERS: ADMIT Internal Medicine Nephrology; ATTEND Internal Medicine
DX: R51 Headache (principal); R53.1 Weakness; Z86.79 Personal history of other diseases of the circulatory system; E72.12 Methylenetetrahydrofolate reductase deficiency; J45.909 Unspecified asthma, uncomplicated; Z33.1 Pregnant state, incidental; Z79.02 Long term (current) use of antithrombotics/antiplatelets; Z79.899 Other long term (current) drug therapy; F17.210 Nicotine dependence, cigarettes, uncomplicated
CPT/HCPCS: 36415; 70450; 70544; 70551; 71010; 76801; 76817; 80048; 81001; 82550; 82553; 83735; 84702; 84703; 85025; 85027; 85610; 85730; 86850; 86900; 86901; 87086; 93005; 93041; 94640; 94760; 96372; 96374; 96375; 96376; 99285; J1650; J2765

== ENCOUNTER → 2016-09-05 | Outpatient (CLI) | payer OTHER ==
[~2016-09-05] MED LIST changes: +BUTA-198 PO; +ENOX40IN3 SQ; +FOLI400T PO; +PREN1TAB11 PO
[2016-09-05 17:28] LABS: BASO % 0.5 % (0.0-1.0); EOS # 0.3 K/mm3 (0.0-0.50); EOS % 2.3 % (0.0-3.0); LARGE UNSTAINED CELL # 0.3 K/mm3 (0.0-0.4); LARGE UNSTAINED CELL % 2.8 % (0.0-4.0); LYMPH # 2.8 K/mm3 (1.5-6.5); LYMPH % 24.7 % (24.0-44.0); MEAN CORPUSCULAR HEMOGLOBIN 27.8 pg (27.0-33.0); MEAN CORPUSCULAR HGB CONC 32.8 g/dl (32.0-36.5); MEAN CORPUSCULAR VOLUME 84.8 fl (80.0-96.0); MONO # 0.7 K/mm3 (0.0-0.8); MONO % 5.7 % (0.0-5.0); NEUTROPHILS # 7.3 K/mm3 (1.8-7.7); NEUTROPHILS % 64.1 % (36.0-66.0); PLATELET COUNT, AUTOMATED 405 k/mm3 (150-450); RED CELL DISTRIBUTION WIDTH 15.7 % (11.5-14.5); WHITE BLOOD COUNT 11.4 K/mm3 (4.0-10.0)
[2016-09-08 11:00] LABS: HBsAg Prenatal NEGATIVE (NEGATIVE)
== END ==
LOC: M LRY 11:33
PROVIDERS: ATTEND Obstetrics & Gynecology
DX: Z34.81 Encounter for supervision of other normal pregnancy, first trimester (principal)

== ENCOUNTER 2016-10-22 19:00 | Emergency (ER) | payer OTHER ==
[~2016-10-22] VITALS: Ht 167.6 cm; Wt 105.4 kg
[~2016-10-22 19:00] MED LIST changes: -REGL10TA6 PO
[2016-10-22] MEDS ORDERED: NS 1,000 ML IV ONE (20:45)
[2016-10-22] MEDS ORDERED: diphenhydrAMINE INJ 50MG/ML VIAL (J1200) IV ONE (20:45)
[2016-10-22] MEDS ORDERED: METOCLOPRAMIDE INJ 10MG/2ML VIAL (J2765) IV ONE (20:45)
[2016-10-22 22:23] LABS: BASO % 0.4 % (0.0-1.0); EOS # 0.4 K/mm3 (0.0-0.50); EOS % 3.1 % (0.0-3.0); LARGE UNSTAINED CELL # 0.2 K/mm3 (0.0-0.4); LYMPH # 3.1 K/mm3 (1.5-6.5); LYMPH % 24.4 % (24.0-44.0); MEAN CORPUSCULAR HEMOGLOBIN 29.2 pg (27.0-33.0); MEAN CORPUSCULAR HGB CONC 34.1 g/dl (32.0-36.5); MEAN CORPUSCULAR VOLUME 85.5 fl (80.0-96.0); MONO # 0.6 K/mm3 (0.0-0.8); MONO % 4.6 % (0.0-5.0); NEUTROPHILS # 7.8 K/mm3 (1.8-7.7); NEUTROPHILS % 65.5 % (36.0-66.0); PLATELET COUNT, AUTOMATED 314 k/mm3 (150-450); RED CELL DISTRIBUTION WIDTH 15.6 % (11.5-14.5); WHITE BLOOD COUNT 11.9 K/mm3 (4.0-10.0)
[2016-10-22 22:45] LABS: ALBUMIN 3.1 GM/DL (3.2-5.2); ALBUMIN/GLOBULIN RATIO 0.84 (1.00-1.93); ALKALINE PHOSPHATASE 63 U/L (45-117); ALT/SGPT 13 U/L (12-78); ANION GAP 10 MEQ/L (8-16); AST/SGOT 7 U/L (15-37); BILIRUBIN,DIRECT < 0.1 MG/DL (0.0-0.2); BILIRUBIN,TOTAL 0.2 MG/DL (0.2-1.0); BLOOD UREA NITROGEN 9 MG/DL (7-18); CALCIUM LEVEL 9.2 MG/DL (8.5-10.1); CARBON DIOXIDE LEVEL 22 MEQ/L (21-32); CHLORIDE LEVEL 106 MEQ/L (98-107); CREATININE FOR GFR 0.55 MG/DL (0.55-1.02); GLOMERULAR FILTRATION RATE > 60.0 (>60); GLUCOSE, FASTING 82 MG/DL (70-105); POTASSIUM SERUM 4.2 MEQ/L (3.5-5.1); SODIUM LEVEL 138 MEQ/L (136-145); TOTAL PROTEIN 6.8 GM/DL (6.4-8.2)
[2016-10-22] MEDS ORDERED: REGL10TA6 PO (23:29)
[2016-10-22 23:51] VITALS: BP 119/71
== END 2016-10-23 00:10 | disposition home or self-care (01) ==
LOC: M ED 19:00
DX: O21.9 Vomiting of pregnancy, unspecified (principal); O26.892 Other specified pregnancy related conditions, second trimester; R10.2 Pelvic and perineal pain; Z3A.17 17 weeks gestation of pregnancy; Z86.73 Personal history of transient ischemic attack (TIA), and cerebral infarction without residual deficits
CPT/HCPCS: 36415; 80048; 80076; 81001; 82105; 82247; 82565; 82570; 83615; 83690; 84156; 84450; 84460; 84550; 85025; 87088; 87186; 96374; 96375; 99284; J1200; J2765

== ENCOUNTER → 2016-10-22 | Outpatient (CLI) | payer OTHER ==
[~2016-10-22] MED LIST changes: +PERC5TAB12 PO; -PERC5TAB6 PO; +REGL10TA6 PO
[2016-10-22 17:18] LABS: ALT/SGPT 14 U/L (12-78); AST/SGOT 5 U/L (15-37); BILIRUBIN,TOTAL 0.3 MG/DL (0.2-1.0); CREATININE FOR GFR 0.62 MG/DL (0.55-1.02); GLOMERULAR FILTRATION RATE > 60.0 (>60); URIC ACID 3.2 MG/DL (2.6-6.0)
== END ==
LOC: M LRY 13:25
PROVIDERS: ATTEND Advanced Practice Midwife
DX: O09.292 Supervision of pregnancy with other poor reproductive or obstetric history, second trimester (principal); Z3A.00 Weeks of gestation of pregnancy not specified

== ENCOUNTER → 2016-10-27 | Outpatient (CLI) | payer OTHER ==
[~2016-10-27] MED LIST changes: +REGL10TA6 PO
--- NOTE | 2016-10-28 14:51 | REP ---
COMPLETE OB ULTRASOUND: 10/27/2016 CLINICAL HISTORY: Supervision of normal , 2nd trimester anatomy screen. COMPARISON: 08/05/2016 FINDINGS: There is a single intrauterine gestation in breech presentation with the cervix 4.2 cm long and closed. There is a posterior grade 0 placenta without previa or abruption. Amniotic fluid volume is visually normal. Biometry:BPD 3.7 cm = 17 weeks 2 days HC 14.9 cm = 18 weeks AC 12.3 cm = 18 weeks FL 2.7 cm = 18 weeks 2 days HL 2.3 cm = 17 weeks 6 day CER 1.7 cm = 17 weeks 1 day This gives average ultrasound age 17 weeks 5 days with EDC 04/01/2017. By LMP, EDC 03/28/2017. Estimated weight 220 grams or 7 ounces is 36th percentile for 18 weeks 2 days. anatomy screen shows a heart rate 150 and regular. Cranial vault, lateral ventricles, choroid plexus, thalami, cavum septum pellucidum, cerebellum and cisterna magna are all unremarkable. lungs are clear. The profile view of the face is not seen, while the nose and lips and other facial views are intact. The four-chamber heart and ventricular outflow tracts are not seen due to lie and maternal body habitus considerations. diaphragm, left-sided stomach bubble, three-vessel cord with cord insertion, kidneys and bladder, transverse and longitudinal views of the spine and the upper lower extremities all intact. IMPRESSION: 1. Single intrauterine gestation in breech position with a closed 4.2 cm long cervix, posterior grade 0 placenta without previa or abruption and visually normal amniotic fluid volume. 2. heart rate 150 and regular with no visible anomalies but the examination would be incomplete as the facial views included only the profile view obscuring the other views due to position. Likewise, four-chamber heart view and ventricular outflow tracts are unremarkable. 3. Size and dates as described above. Signed by Xavier Felder MD 10/28/2016 05:43 P
== END ==
LOC: M LRY 12:52
PROVIDERS: ATTEND Advanced Practice Midwife
DX: Z34.82 Encounter for supervision of other normal pregnancy, second trimester (principal)

== ENCOUNTER → 2016-11-28 | Outpatient (CLI) | payer OTHER ==
--- NOTE | 2016-11-28 15:31 | REP ---
Clinical: Anatomical re-evaluation. Comparison: 10/27/2016 . Findings: Examination demonstrates a single live intrauterine in cephalic presentation. motion is identified by technologist. Placenta is noted posteriorly and grade zero without evidence for placenta previa or abruption. Amniotic fluid volume is normal. Cervix measures L 4.2 cm in length and appears closed. No evidence for nuchal cord. Gestational age by LMP 22 weeks 6 days with [place] 03/28/2017 . Gestational age by current measurements 22 weeks 5 days with [place] 03/29/2017 . FHR equals 153 beats per minute. Estimated weight 557 grams (49th percentile). Anatomical assessment demonstrates normal structures including cranium, choroid plexus, cavum, cerebellum/posterior fossa, facial features, lungs, four-chamber heart/ventricular outflow tracts, diaphragm, stomach, cord insertion/three-vessel cord, kidneys/bladder, and extremities. Impression: Single live intrauterine in cephalic presentation demonstrating appropriate interval growth. In conjunction with prior examination anatomical assessment is complete and normal. Signed by Kwan Sutherland MD 11/28/2016 03:23 P
== END ==
LOC: M LRY 13:40
PROVIDERS: ATTEND Advanced Practice Midwife
DX: Z34.80 Encounter for supervision of other normal pregnancy, unspecified trimester (principal)

== ENCOUNTER → 2017-01-01 | Outpatient (REF) | payer OTHER | LOC: M LAB REF 12:54 | PROVIDERS: ATTEND Advanced Practice Midwife | DX: Z34.83 Encounter for supervision of other normal pregnancy, third trimester (principal) ==

== ENCOUNTER → 2017-01-09 | Outpatient (CLI) | payer OTHER ==
[2017-01-09 11:42] LABS: MEAN CORPUSCULAR HEMOGLOBIN 28.8 pg (27.0-33.0); MEAN CORPUSCULAR HGB CONC 31.4 g/dl (32.0-36.5); MEAN CORPUSCULAR VOLUME 91.6 fl (80.0-96.0); PLATELET COUNT, AUTOMATED 309 10^3/uL (150-450); RED CELL DISTRIBUTION WIDTH 15.3 % (11.5-14.5); WHITE BLOOD COUNT 10.4 10^3/uL (4.0-10.0)
== END ==
LOC: M LRY 08:21
PROVIDERS: ATTEND Advanced Practice Midwife
DX: Z34.82 Encounter for supervision of other normal pregnancy, second trimester (principal)

== ENCOUNTER → 2017-02-02 | Outpatient (CLI) | payer OTHER | LOC: M LAB 09:09 | PROVIDERS: ATTEND Advanced Practice Midwife | DX: R73.02 Impaired glucose tolerance (oral) (principal) ==

== ENCOUNTER → 2017-03-05 | Outpatient (REF) | payer OTHER | LOC: M LAB REF 13:13 | PROVIDERS: ATTEND Obstetrics & Gynecology | DX: Z34.83 Encounter for supervision of other normal pregnancy, third trimester (principal) ==

== ENCOUNTER 2017-03-16 03:55 | Inpatient (IN) | payer OTHER ==
[2017-03-16] VITALS (15 sets, daily range): BP systolic 103–142; BP diastolic 51–82
[~2017-03-16] VITALS: Ht 167.6 cm; Wt 112.0 kg
[2017-03-16] MEDS: LR 1,000 ML IV SCH ×2 (05:15→13:15)
[2017-03-16] MEDS ORDERED: HEPA1010VL INJ (05:37)
[2017-03-16 06:00] LABS: BASO % 0.2 % (0.0-1.0); EOS # 0.3 10^3/uL (0.0-0.50); EOS % 2.9 % (0.0-3.0); IMMATURE GRANULOCYTE % 0.5 % (0-0); LYMPH # 3.1 10^3/uL (1.5-6.5); LYMPH % 27.9 % (24.0-44.0); MEAN CORPUSCULAR HEMOGLOBIN 27.8 pg (27.0-33.0); MEAN CORPUSCULAR HGB CONC 32.7 g/dl (32.0-36.5); MEAN CORPUSCULAR VOLUME 84.8 fl (80.0-96.0); MONO # 0.8 10^3/uL (0.0-0.8); NEUTROPHILS # 6.8 10^3/uL (1.8-7.7); NEUTROPHILS % 61.5 % (36.0-66.0); PLATELET COUNT, AUTOMATED 289 10^3/uL (150-450); RED CELL DISTRIBUTION WIDTH 14.9 % (11.5-14.5); WHITE BLOOD COUNT 11.1 10^3/uL (4.0-10.0)
[2017-03-16 06:11] LABS: INR 0.95
[2017-03-16 06:21] LABS: ALBUMIN 2.5 GM/DL (3.2-5.2); ALBUMIN/GLOBULIN RATIO 0.69 (1.00-1.93); ALKALINE PHOSPHATASE 138 U/L (45-117); ALT/SGPT 16 U/L (12-78); ANION GAP 10 MEQ/L (8-16); AST/SGOT 13 U/L (7-37); BILIRUBIN,TOTAL 0.2 MG/DL (0.2-1.0); BLOOD UREA NITROGEN 8 MG/DL (7-18); CALCIUM LEVEL 8.2 MG/DL (8.5-10.1); CARBON DIOXIDE LEVEL 21 MEQ/L (21-32); CHLORIDE LEVEL 109 MEQ/L (98-107); CREATININE FOR GFR 0.58 MG/DL (0.55-1.02); GLOMERULAR FILTRATION RATE > 60.0 (>60); GLUCOSE, FASTING 95 MG/DL (70-105); POTASSIUM SERUM 3.8 MEQ/L (3.5-5.1); SODIUM LEVEL 140 MEQ/L (136-145); TOTAL PROTEIN 6.1 GM/DL (6.4-8.2); URIC ACID 3.2 MG/DL (2.6-6.0)
[2017-03-16] MEDS ORDERED: LACTATED RINGER'S 1000 ML IV STA (08:17)
[2017-03-16] MEDS ORDERED: OXYTOCIN DRIP 30 UNITS in APPROPRIATE DILUENT 1 EA IV SCH (09:00)
--- NOTE | 2017-03-16 09:33 | HPEPDOC ---
Obstetrical History & Physical General Date of Admission Mar 16, 2017 at 05:04 History of Present Illness Chief Complaint: LOF, term, Rupture of membranes Information Provided By: Patient Age: 26 : 3 Term: 1 Pre-term: 1 Abortions: 0 Livin Care Care: Good Care Number of Visits: 15 Dating Final EDC: Apr 01, 2017 Final EDC by: 1st trimester (US) 1st Trimester Date: August 13, 2016 Antepartum Course Diagnos(e)s A1GDM, hx CVA with thrombectomy 2015 Height (inches): 66 Pre- weight (lbs.): 247 Change in Weight (lbs.): 1 Past Medical History Past Obstetrical History : Past Obstetrical History: Multigravida (Previous 10/2011, NSVB viable female 7#14) Gestation: 36 (36+4) Type of Delivery: Spontaneous Vaginal Del. Sex of Infant: Male Complications: Yes (IOL for preeclampsia, CVA ) Past Medical History Medical History CVA with thrombectomy Surgical History: Gallbladder Family History Significant Family History: Hypertension Family History Son has tricuspid atresia Social History Marital Status: Family situation: Spouse/partner home Psychosocial History: Other (reports depression but never diagnosed or treated) * Smoker: non-smoker Alcohol: Denies Drugs: denies Abuse Violence Screening Have you been hit/kicked/slapp: No Have you been sexually assault: No Imunizations Tdap status: current Influenza Status: current Allergies Coded Allergies: No Known Allergies (Unverified , 04/09/15) Medications Scheduled Heparin Sod (Porcine) (Heparin Sodium) 10,000 Mg/10 Ml Inj, 10,000 MG INJ DAILY Multivitamins/ ( Vitamin 27-0.8 mg) 1 Tab Tab, 1 TAB PO QHS Scheduled PRN Albuterol Sulfate (Proventil Hfa) 167 Puff/6.7 Gm Aers, 2 PUFFS INH QID PRN for SOB/WHEEZING Physical Examination Physical Examination GENERAL: Alert and oriented times three. BREAST: . ABDOMEN: Gravid and non-tender to touch. FETUS: Is vertex (VTX) by sterile vaginal examination (SVE), fetus is vertex ( VTX) by Gavino. HEART RATE: Regular rate and rhythm. LUNGS: Clear to auscultation (CTA). EXTREMITIES: No edema. No clonus. Deep tendon reflexes (DTRs) + 2. Vital Signs/I&O Vital Signs Date Time Temp Pulse Resp B/P (MAP) Pulse Ox O2 Delivery O2 Flow Rate FiO2 03/16/17 07:22 97.2 95 103/55 (71) 03/16/17 07:20 18 Laboratory Data 24H LABS Laboratory Tests 2 03/16/17 05:09: Serology Scanned Report Hepatitis B Testing 03/16/17 05:48: Immature Granulocyte % (Auto) 0.5H, White Blood Count 11.1H, Red Blood Count 3.96L, Hemoglobin 11.0L, Hematocrit 33.6L, Mean Corpuscular Volume 84.8, Mean Corpuscular Hemoglobin 27.8, Mean Corpuscular Hemoglobin Concent 32.7, Red Cell Distribution Width 14.9H, Platelet Count 289, Neutrophils (%) (Auto) 61.5, Lymphocytes (%) (Auto) 27.9, Monocytes (%) (Auto) 7.0H, Eosinophils (%) (Auto) 2.9, Basophils (%) (Auto) 0.2, Neutrophils # (Auto) 6.8, Lymphocytes # (Auto) 3.1, Monocytes # (Auto) 0.8, Eosinophils # (Auto) 0.3, Basophils # (Auto) 0.0, Immature Granulocyte # (Auto) 0.1H, Nucleated Red Blood Cells % (auto) 0.0, Prothrombin Time 12.7, Prothromb Time International Ratio 0.95, Activated Partial Thromboplast Time 22.5L, Anion Gap 10, Glomerular Filtration Rate > 60.0 , Blood Urea Nitrogen 8, Creatinine 0.58, Sodium Level 140, Potassium Level 3.8 , Chloride Level 109H, Carbon Dioxide Level 21, Calcium Level 8.2L, Aspartate Amino Transf (AST/SGOT) 13, Alanine Aminotransferase (ALT/SGPT) 16, Alkaline Phosphatase 138H, Total Bilirubin 0.2, Uric Acid 3.2, Total Protein 6.1L, Albumin 2.5L, Albumin/Globulin Ratio 0.69L, Urine Amphetamines Screen NEGATIVE, Urine Benzodiazepines Screen NEGATIVE, Urine Opiates Screen NEGATIVE, Urine Methadone Screen NEGATIVE, Urine Barbiturates Screen NEGATIVE, Urine Phencyclidine Screen NEGATIVE, Urine Cocaine Metabolite Screen NEGATIVE, Urine Cannabinoids Screen NEGATIVE CBC/BMP Laboratory Tests 03/16/17 05:48 Red Blood Count 3.96 L, Mean Corpuscular Volume 84.8, Mean Corpuscular Hemoglobin 27.8, Mean Corpuscular Hemoglobin Concent 32.7, Red Cell Distribution Width 14.9 H, Neutrophils (%) (Auto) 61.5, Lymphocytes (%) (Auto) 27.9, Monocytes (%) (Auto) 7.0 H, Eosinophils (%) (Auto) 2.9, Basophils (%) ( Auto) 0.2, Neutrophils # (Auto) 6.8, Lymphocytes # (Auto) 3.1, Monocytes # (Auto ) 0.8, Eosinophils # (Auto) 0.3, Basophils # (Auto) 0.0, Calcium Level 8.2 L, Aspartate Amino Transf (AST/SGOT) 13, Alanine Aminotransferase (ALT/SGPT) 16, Alkaline Phosphatase 138 H, Total Bilirubin 0.2, Uric Acid 3.2, Total Protein 6.1 L, Albumin 2.5 L Pertinent Laboratoy Data Blood Type: A+ RBC Antibody Screen: Negative HIV: Negative Hepatitis B: Negative Hepatitis C: Negative Rapid Plasma Reagin: Nonreactive Rubella: Immune Chlamydia/Gonorrhea: Negative Group B Streptococcus: Negative Quad Screen Test: Negative Glucose Tolerance Test: 158. (three-hour GTT 108, 186, 135, 112) Anatomy Ultrasound Ultrasound Date: Oct 28, 2016 Placenta Location: Posterior Normal Anatomy: Yes Placenta Previa: No Other Ultrasounds 08/13/2016 7 weeks for estimated date of delivery 04/01/2017 Steroid Therapy Steroid Therapy: No Vaginal Examination Dilation: 2cm Effacement: 80% Station: -3 Cervical Consistency: Soft Cervical Position: Posterior Presentation: Cephalic presentation Assessment Heart Rate (FHR): 145 Variability: Moderate Accelerations: Positive Decelerations: None Tocometer Contractions: Yes Frequency: irregular Strength: palpated as mild Assessment/Plan Assessment Jasmin is a 26-year-old (G) 3 para (P) 1 -1 -0-2 at 37 + 5 weeks by 7 -week ultrasound. Presents to Labor and Delivery (L&D) with reports of spontaneous rupture of membranes for clear fluid at 0300. Denies regular contractions. Fetus is active Plan Admit and orient. Industrial Court Magistrate and consent. Diet: Regular breakfast and clear liquids. Group B Streptococcus (GBS) negative. Labs and intravenous (IV) per unit protocol. Counseled on Pitocin and induction of labor (IOL). Lactated Ringers (LR): Bolus 500 mL, then at 125 mL/hr. Anticipate normal spontaneous vaginal delivery. Dr. Roldan is aware of patient's status and agrees with plan C-S as appropriate. Anabella Darling CNM Mar 16, 2017 08:25
[2017-03-16] MEDS ORDERED: BUTORPHANOL 2 MG/ML INJ (J0595) IV ONE (11:00)
[2017-03-16] MEDS ORDERED: PROMETHAZINE INJ 25 MG/ML VIAL (J2550) IV ONE (11:00)
--- NOTE | 2017-03-16 13:58 | DNPDOC ---
[facility] Delivery Note Delivery Note DATE OF DELIVERY: 03/16/2017 PREDELIVERY DIAGNOSIS: 37-5/7 weeks' gestation. PROM. POST DELIVERY DIAGNOSIS: Delivered. PROCEDURE: Spontaneous vaginal delivery. PROVIDER: Anabella Darling ANESTHESIA: None. ESTIMATED BLOOD LOSS:. 400 mL. FINDINGS: 7 pound 8 ounce male infant, Score, 7/, 9, nuchal cord times 1, loose , reduced prior to delivery. True knot noted in cord. DELIVERY SUMMARY: Patient is a 26-year-old 3 now para 2 -1 -0-3 who was admitted to labor and delivery for. Induction of labor secondary to rupture of membranes. Her labor was augmented with IV Pitocin. She utilized Stadol and Phenergan for one dose for coping. Fully dilated at 1315. Viable male child delivered without difficulty at 1320 JOY through a loose nuchal cord. Spontaneous respirations with stimulation, transitioned on the maternal abdomen. Cord doubly clamped and cut by father of the baby under my direction once pulsations ceased. The infant then went to the warmer for further stimulation. Apgars were 7 and 9. Placenta delivered Mccrary and intact with trailing membranes at 1325. True knot was noted in the three-vessel cord. Fundus firmed with massage and IV Pitocin bolus. However, brisk bleeding persisted. Misoprostol 1000 g GA controlled bleeding. Estimated blood loss 400 mL cervix, vagina and perineum inspected, noted to be intact. weight 3410 g, 7 lbs. 8 oz. Sponge, sharp and instrument count correct at the close of the procedure Anabella Darling CNM Mar 16, 2017 13:58
[2017-03-16] MEDS ORDERED: METHYLERGONOVINE MALEATE 0.2 MG TAB PO PRN (14:00)
[2017-03-16] MEDS ORDERED: DIBUCAINE 1% OINTMENT 30GM TOP PRN (14:00)
[2017-03-16] MEDS ORDERED: ANUSOL HC CREAM 30GM TOP PRN (14:00)
[2017-03-16] MEDS ORDERED: DOCUSATE SODIUM 100 MG CAP PO PRN (14:00)
[2017-03-16] MEDS ORDERED: RHOGAM 300 MCG (1500 IU) INJ (J2790) IM SCH (14:00)
[2017-03-16] MEDS ORDERED: miSOPROStol 200 MCG TAB (S0191) PR ONE (14:00)
[2017-03-16] MEDS ORDERED: MEASLES,MUMPS,RUBELLA VACCINE INJ (MMR-II) (90707) SC SCH (14:00)
[2017-03-16] MEDS ORDERED: MOM 30ML SUSPENSION UDC PO PRN (14:00)
[2017-03-16] MEDS: PRENATAL VITAMINS CHEWABLE TABLET PO SCH (15:24)
[2017-03-16] MEDS: IBUPROFEN 800 MG TAB PO PRN (15:30)
[2017-03-16] MEDS: ACETAMINOPHEN 500 MG TAB PO PRN (19:57)
[2017-03-17] MEDS: IBUPROFEN 800 MG TAB PO PRN ×2 (00:06→08:22)
[2017-03-17 06:00] VITALS: BP 125/60
[2017-03-17] MEDS: ACETAMINOPHEN 500 MG TAB PO PRN (06:18)
[2017-03-17 06:32] LABS: MEAN CORPUSCULAR HEMOGLOBIN 27.6 pg (27.0-33.0); MEAN CORPUSCULAR HGB CONC 32.8 g/dl (32.0-36.5); MEAN CORPUSCULAR VOLUME 84.1 fl (80.0-96.0); PLATELET COUNT, AUTOMATED 251 10^3/uL (150-450)
[2017-03-17 06:59] LABS: ALT/SGPT 13 U/L (12-78); AST/SGOT 13 U/L (7-37); BILIRUBIN,TOTAL 0.2 MG/DL (0.2-1.0); CREATININE FOR GFR 0.66 MG/DL (0.55-1.02); GLOMERULAR FILTRATION RATE > 60.0 (>60); URIC ACID 3.4 MG/DL (2.6-6.0)
[2017-03-17] MEDS: PRENATAL VITAMINS CHEWABLE TABLET PO SCH (08:22)
[2017-03-17] MEDS ORDERED: ENOXAPARIN 40 MG/0.4 ML SYRINGE (J1650) SC SCH (09:00)
[2017-03-17] MEDS ORDERED: ACET50TA PO (16:17)
[2017-03-17] MEDS ORDERED: IBUP-1114 PO (16:17)
[2017-03-17] MEDS ORDERED: LOVE1INJ SC (16:18)
== END 2017-03-17 16:24 | disposition home or self-care (01) | DRG 775 ==
LOC: M LDO 03:55 → M LDI 05:04 → M OBS 15:13
PROVIDERS: ADMIT Obstetrics & Gynecology; ATTEND Advanced Practice Midwife
PROC: 10E0XZZ Delivery of Products of Conception, External Approach (ICD-10-PCS; principal; 2017-03-16)
DX: O69.2XX0 Labor and delivery complicated by other cord entanglement, with compression, not applicable or unspecified (principal); Z86.73 Personal history of transient ischemic attack (TIA), and cerebral infarction without residual deficits; Z79.01 Long term (current) use of anticoagulants; Z79.899 Other long term (current) drug therapy; Z3A.37 37 weeks gestation of pregnancy; Z37.0 Single live birth

== ENCOUNTER → 2017-06-12 | Outpatient (REF) | payer OTHER ==
[2017-06-12 16:15] LABS: BASO % 0.5 % (0.0-1.0); EOS # 0.3 10^3/uL (0.0-0.50); EOS % 3.9 % (0.0-3.0); HEMATOCRIT 42.3 % (36.0-47.0); HEMOGLOBIN 13.6 g/dl (12.0-16.0); IMMATURE GRANULOCYTE % 0.2 % (0-3.0); LYMPH # 2.7 10^3/uL (1.5-6.5); LYMPH % 31.3 % (24.0-44.0); MEAN CORPUSCULAR HEMOGLOBIN 28.3 pg (27.0-33.0); MEAN CORPUSCULAR HGB CONC 32.2 g/dl (32.0-36.5); MEAN CORPUSCULAR VOLUME 87.9 fl (80.0-96.0); MONO # 0.5 10^3/uL (0.0-0.8); MONO % 5.2 % (0.0-5.0); NEUTROPHILS # 5.1 10^3/uL (1.8-7.7); NEUTROPHILS % 58.9 % (36.0-66.0); PLATELET COUNT, AUTOMATED 405 10^3/uL (150-450); RED BLOOD COUNT 4.81 10^6/uL (4.00-5.40); RED CELL DISTRIBUTION WIDTH 15.1 % (11.5-14.5); WHITE BLOOD COUNT 8.7 10^3/uL (4.0-10.0)
[2017-06-12 16:45] LABS: ALBUMIN 3.8 GM/DL (3.2-5.2); ALBUMIN/GLOBULIN RATIO 1.06 (1.00-1.93); ALKALINE PHOSPHATASE 109 U/L (45-117); ALT/SGPT 45 U/L (12-78); ANION GAP 5 MEQ/L (8-16); AST/SGOT 20 U/L (7-37); BILIRUBIN,TOTAL 0.4 MG/DL (0.2-1.0); BLOOD UREA NITROGEN 14 MG/DL (7-18); C REACTIVE PROTEIN QUANTITATIV 0.66 MG/DL (0.00-0.30); CALCIUM LEVEL 8.9 MG/DL (8.5-10.1); CARBON DIOXIDE LEVEL 26 MEQ/L (21-32); CHLORIDE LEVEL 109 MEQ/L (98-107); CREATININE FOR GFR 0.72 MG/DL (0.55-1.30); GLOMERULAR FILTRATION RATE > 60.0 (>60); GLUCOSE, FASTING 82 MG/DL (70-100); POTASSIUM SERUM 4.4 MEQ/L (3.5-5.1); SODIUM LEVEL 140 MEQ/L (136-145); TOTAL PROTEIN 7.4 GM/DL (6.4-8.2)
[2017-06-12 17:59] LABS: ERYTHROCYTE SEDIMENTATION RATE 41 mm/hr (0-20)
== END ==
LOC: M SFHCLERA 12:07
DX: R51 Headache (principal)

== ENCOUNTER → 2017-07-04 | Outpatient (CLI) | payer OTHER | LOC: M RAD 12:33 | DX: R51 Headache (principal) | CPT/HCPCS: 70551 ==

== ENCOUNTER → 2017-09-02 | Outpatient (REF) | payer OTHER | LOC: M LAB REF 13:05 | DX: Z12.4 Encounter for screening for malignant neoplasm of cervix (principal) ==

== ENCOUNTER → 2017-11-26 | Outpatient (CLI) | payer OTHER ==
[2017-11-26 18:02] LABS: ALBUMIN 3.9 GM/DL (3.2-5.2); ALBUMIN/GLOBULIN RATIO 1.11 (1.00-1.93); ALKALINE PHOSPHATASE 86 U/L (45-117); ALT/SGPT 28 U/L (12-78); ANION GAP 9 MEQ/L (8-16); AST/SGOT 11 U/L (7-37); BILIRUBIN,TOTAL 0.3 MG/DL (0.2-1.0); BLOOD UREA NITROGEN 17 MG/DL (7-18); CALCIUM LEVEL 8.9 MG/DL (8.5-10.1); CARBON DIOXIDE LEVEL 21 MEQ/L (21-32); CHLORIDE LEVEL 111 MEQ/L (98-107); CREATININE FOR GFR 0.82 MG/DL (0.55-1.30); GLOMERULAR FILTRATION RATE > 60.0 (>60); GLUCOSE, FASTING 102 MG/DL (70-100); POTASSIUM SERUM 4.3 MEQ/L (3.5-5.1); RHEUMATOID FACTOR QUANT < 10.0 IU/ML (<15.0); SODIUM LEVEL 141 MEQ/L (136-145); TOTAL PROTEIN 7.4 GM/DL (6.4-8.2)
[2017-11-26 19:03] LABS: TOTAL 25(OH) VITAMIN D 27.8 NG/ML (30.0-100.0)
[2017-11-26 20:13] LABS: BASO # 0.1 10^3/uL (0.0-0.2); BASO % 0.7 % (0.0-1.0); EOS # 0.5 10^3/uL (0.0-0.50); EOS % 4.9 % (0.0-3.0); HEMATOCRIT 43.5 % (36.0-47.0); HEMOGLOBIN 13.7 g/dl (12.0-15.5); IMMATURE GRANULOCYTE % 0.3 % (0-3.0); LYMPH # 2.7 10^3/uL (1.5-6.5); MEAN CORPUSCULAR HEMOGLOBIN 28.5 pg (27.0-33.0); MEAN CORPUSCULAR HGB CONC 31.5 g/dl (32.0-36.5); MEAN CORPUSCULAR VOLUME 90.6 fl (80.0-96.0); MONO # 0.4 10^3/uL (0.0-0.8); MONO % 4.6 % (0.0-5.0); NEUTROPHILS # 5.4 10^3/uL (1.8-7.7); NEUTROPHILS % 59.5 % (36.0-66.0); PLATELET COUNT, AUTOMATED 443 10^3/uL (150-450); RED CELL DISTRIBUTION WIDTH 14.5 % (11.5-14.5); WHITE BLOOD COUNT 9.1 10^3/uL (4.0-10.0)
[2017-11-26 22:16] LABS: ERYTHROCYTE SEDIMENTATION RATE 26 mm/hr (0-20)
[2017-11-28 10:24] LABS: ANTINUCLEAR ANTIBODIES DIRECT Negative (Negative)
== END ==
LOC: M LRY 10:50
DX: R51 Headache (principal)
CPT/HCPCS: 84443